=== PATIENT | male | born 1990 ===

== ENCOUNTER 2017-09-07 18:26 | Emergency (ER) | payer SELFPAY ==
[2017-09-07] MEDS ORDERED: Sodium Bicarbonate (8.4%) 50 mEq Vial ONE (18:35)
--- NOTE | 2017-09-07 19:52 | C.PDOC ---
History Of Present Illness Pt lives with his cousin and upon arrival home he found pt sitting in a chair with a curtain wrapped around his neck and unresponsive. EMS found him in asystole. Time Seen by Provider: 09/07/17 18:37 Chief Complaint (Nursing): Cardiac Arrest History Per: EMS Reason For Code Blue: Full Arrest Circumstances: Brought To ED By EMS Arrest Witnessed By: No One CPR Initiated Prior To MD Arrival?: Yes Down-Time Before ACLS: Unknown Treatment Initiated Prior To MD Arrival: Yes: CPR, BVM Ventilations, Intubation , IVF, ACLS Medication Initiation, IV Access Medications Given Prior To MD Arrival: Yes: Epinephrine - Initial Findings Mentation: Unresponsive Respirations: None (Assisted) Pulse: None Rhythm: Asystole Past Medical History Reviewed: Historical Data, Nursing Documentation, Vital Signs - Medical History PMH: Depression (?) Family History: States: Unknown Family Hx - Social History Hx Alcohol Use: Yes Hx Substance Use: Yes - Immunization History Hx Tetanus Toxoid Vaccination: No Hx Influenza Vaccination: No Hx Pneumococcal Vaccination: No Review Of Systems Review Of Systems: ROS cannot be obtained secondary to pt's inabilty to answer questions. Physical Exam - Physical Exam Appears: Other (Unresponsive) Skin: Warm, Dry, Mottled, Other (Lividity) Head: Atraumatic Eye(s): bilateral: Other (Fixed and dilated) Oral Mucosa: Other (ETT in place with bloody secretions) Neck: No Step Off Deformity, Other (I placed pt in a hard cervical collar upon arrival to the ED.) Chest: Symmetrical, No Deformity Cardiovascular: Other (No heart sounds) Respiratory: Other (equal breath sounds with bagging) Gastrointestinal/Abdominal: Soft, No Distention Extremity: Normal ROM, No Deformity Neurological/Psych: No Response To Commands Pain Response: No Response To Pain Progress - Interventions Interventions:: Intravenous fluid, Oxygen - Medications Administered Intravenous: Other (Epinephrine. Sodium Bicarb.) - Data Reviewed Data Reviewed: Old records - Patient Status Patient status: - Critical Care Citical Care: Excluding Proc Time Critical Care Time: 30 minutes - Continuity of Care Discussed patient case with:: Family-HIPPA compliant, ED Nurse Disposition - Disposition Disposition: WITH WITHOUT AUTOPSY Disposition Time: 19:35 Condition: - Clinical Impression Clinical Impression: by strangulation
== END 2017-09-07 23:00 ==
LOC: EDBD 18:26 → C.ER 18:26
DX: T71.162A Asphyxiation due to hanging, intentional self-harm, initial encounter (principal)
CPT/HCPCS: 82948; 99285; J0171